=== PATIENT | male | born 1995 | race African-American/Black ===

== ENCOUNTER 2018-06-09 17:58 | Emergency (ER) | payer OTHER, SELFPAY ==
[2018-06-09] MEDS ORDERED: Ibuprofen 600 MG TAB ONE (18:26)
== END 2018-06-09 18:33 | disposition home or self-care (01) ==
LOC: SCSER 17:58
DX: J02.9 Acute pharyngitis, unspecified (principal)
CPT/HCPCS: 87081; 87430; 99283